=== PATIENT | female | born 1990 | race Caucasian/White ===

== ENCOUNTER 2020-01-02 19:10 | Inpatient (IN) | payer OTHER, SELFPAY ==
[2020-01-02 19:34] VITALS: BP 127/83; PULSE 108
[2020-01-02 19:35] VITALS: TEMP 37.1
[2020-01-02] MEDS: 0.9% Normal Saline Single 100 ML IV.SOLN. IY (20:00)
--- NOTE | 2020-01-02 20:05 | HP.PCM_ITS ---
History Date of Admission: 01/02/20 Final LEONARDO: 12/27/19 Gestational age: 40 Weeks and 6 Days History of this : This is a 29 year-old, @ 40.6 weeks- IOL for post EDC. Smoking Status: Never smoker Alcohol: None Number of Fetus(es): 1 History Past Pregnancies: Past Pregnancies Delivery Date Name GA/ Weeks Outcome Route Wt Infant Sex Labor Length Anesthesia Delivery Location Provider FOB Expected Infant Delivery Method: Spontaneous Vaginal Physical Exam Vitals: Vital Signs Temp Pulse BP 98.8 F 108 H 127/83 H 01/02/20 19:35 01/02/20 19:34 01/02/20 19:34 General: Alert, Oriented x3 Abdomen: Soft, Non Tender, - - Gravid Neurological: Cranial nerves II-XII grossly intact [employer]: Normal external genitalia Estimated gestational size: Appropriate for gestational size Presentation: Cephalic Cervix Dilation (cm): 1 Station: -2 Effacement (%): 50 Assessment/Plan This is a 29 year-old, @ 40.6 wks here for IOL 1) admit to L&D 2) monitor FHR/TOCO 3) CYTOTEC/FLANAGAN placed 4) anticipate 5) COVID 19 testing- asymptomatic 6) Epidural if requested for pain mgmt
[2020-01-02 20:08] VITALS: BMI 31.8
[2020-01-02] MEDS: Lactated Ringers 1,000 ML 50 ML IV (20:10)
[2020-01-02 20:28] LABS: Absolute Lymphocyte Count 1.97 X10^3/uL (0.83-4.51); Absolute Neutrophil Count 12.3 X10^3/uL (2.0-7.7); Basophil# 0.03 X10^3/uL; Basophil% 0.2 % (0-1); Eosinophil# 0.08 X10^3/uL; Eosinophils% 0.5 % (0-5); Hematocrit 36.3 % (37-47); Hemoglobin 12.6 g/dL (12.0-15.0); Lymphocyte # 1.97 X10^3/ul (4.0); Lymphocyte % 12.6 % (19-41); Mean Corp Hgb Conc 34.7 g/dL (32-36); Mean Corpuscular Hgb 32.9 pg (27.0-32.0); Mean Corpuscular Volume 94.8 fL (81-99); Mean Platelet Vol. 10.3 fl (6.2-12.0); Monocyte# 1.02 X10^3/uL; Monocyte% 6.5 % (0-10); NRBC Flagged by Analyzer 0 % (0-5); Neutrophil % 78.6 % (47-70); Platelet Count 227 K/mm3 (150-450); RBC Distribution Width CV 13.3 % (11.6-14.6); RBC Distribution Width SD 45.7 fl (35.1-43.9); Red Blood Count 3.83 M/mm3 (4.2-5.4); White Blood Count 15.7 K/mm3 (4.4-11.0)
[2020-01-02 20:29] VITALS: TEMP 37.1; O2SAT 96
[2020-01-02] MEDS: miSOPROStol 25 MCG TABLET PO (20:40)
[2020-01-02 20:42] VITALS: PULSE 101; O2SAT 96
[2020-01-02] MEDS: Acetaminophen 325 MG Tablet PO (21:54)
[2020-01-02 22:44] VITALS: BP 120/68; PULSE 88; TEMP 36.4; O2SAT 98; O2SAT 99
[2020-01-03] VITALS (67 sets, daily range): BP systolic 101–142; BP diastolic 53–86; PULSE 83–174; TEMP 35.1–37.9; O2SAT 81–100
[2020-01-03] MEDS: Oxytocin 30 units/NS 500 ml 30 UNITS/500 ML IV.SOLN IV (00:54)
[2020-01-03] MEDS: 0.9% Saline Lock 10 ML Syringe IV ×2 (00:54→12:42)
[2020-01-03] MEDS: Lactated Ringers 1,000 ML 50 ML IV (00:55)
[2020-01-03] MEDS: Lactated Ringers 500 ML 999 ML IV ×3 (01:06→15:56)
[2020-01-03] MEDS: Mag Hydrox/Al Hydrox/Simeth 30 ML UDC PO ×2 (02:10→20:42)
[2020-01-03] MEDS: Acetaminophen 325 MG Tablet PO (05:53)
--- NOTE | 2020-01-03 08:22 | PCM.PN.BLA ---
Progress Note Seen at bedside. Reports contractions are getting more intense. Vaginal exam performed /-1, AROM performed scant clear fluid. STROKE Vital Signs/Narrative: Vital Signs Temp Pulse BP Pulse Ox 01/03/20 07:19 98.2 F 01/03/20 07:17 100 124/75 H 96 01/03/20 07:16 98.2 F 01/03/20 05:59 97.2 F L 93 112/60 01/03/20 04:55 97.3 F L 97 112/72
[2020-01-03] MEDS: fentaNYL-bupivacaine (epidural) 100 ML BAG EPIDURAL ×3 (09:11→18:52)
[2020-01-03] MEDS: Lactated Ringers 1,000 ML 200 ML IV ×2 (12:43→18:55)
[2020-01-03] MEDS: Oxytocin 30 units/NS 500 ml 30 UNITS/500 ML IV.SOLN 334 UNITS IV (21:31)
[2020-01-03] MEDS: Methylergonovine 0.2 MG/ML Ampul IM (21:34)
--- NOTE | 2020-01-03 21:49 | PCM.OPRPT ---
Vaginal Delivery Maternal Presentation: Medically Indicated Induction Method of Induction: Pitocin, Amniotomy, Cytotec Medical Reason for Induction: - - 41 weeks Amniotic Membrane Rupture Type: Artificial Amniotic Fluid Description: Clear Final LEONARDO: 12/27/19 Final LEONARDO Source: US <20 weeks Gestational age: 41 Weeks and 0 Days Date of Procedure: 01/03/20 Pre-Operative Diagnosis: maternal exhaustion, persistent ROP position Post-Operative Diagnosis: same Surgery/ Procedure Performed: Vacuum Assisted Vaginal Delivery Type of Anesthesia: Epidural Description of Procedure: The patient was complete in labor down for an hour as she was not feeling any urge to push. She then pushed for 3 hours and had significant caput. Position was ROP. She was pushing adequately. There was adequate, pelvis was clinically adequate, and estimated weight was less than 4000 g clinically. Virgen catheter was in place. With pushing efforts, I attempted to manually rotate the baby but was unable to do so. At this point patient was getting fatigued and had been pushing for at least 45 minutes without any significant progress. I offered her a trial of vacuum assistance. Risk benefits and alternatives were reviewed and she desired to proceed. Vacuum was placed on the flexion point and pressure was created to 550 mmHg. I pulled with 4 pulls to and the vacuum was removed. There were no pop offs. The patient then delivered the remainder the head with 1 push. The remainder the infant was delivered in less than 15 seconds with gentle traction and maternal pushing efforts only. The infant was placed on the maternal abdomen and cord clamping was delayed. The cord was then clamped and cut. Spontaneous delivery of the placenta intact with a three-vessel cord. The uterus was mildly atonic without hemorrhage. Fundal massage was given and the dose and infusion rate was increased. The patient was given Methergine IM x1. Uterus was then firm and bleeding became average. Second-degree perineal laceration was closed with 3-0 Vicryl Rapide suture in a running standard fashion. Sponge and needle counts were correct. A vaginal sweep was completed by me. Patient and fetus tolerated the procedure well. Presentation: ROP Placental Delivery Description: Spontaneous Placenta Disposition: [facility] Cord Vessel Description: 3 Vessels Cord Gases drawn per routine: ABG, VBG Cord Entanglement: None Drain: Virgen to straight drain Estimated Blood Loss: 500 Infant A gender: Female - Charlotte (1 minute): 9 (5 minute): 9 Episiotomy Description: None Laceration: 2nd degree - perineal Medications given after delivery: IV Pitocin Complications: None
[2020-01-04] MEDS: Naproxen 250 MG Tablet 500 MG PO ×3 (01:54→18:45)
[2020-01-04 03:19] VITALS: BP 121/57; PULSE 109; RESP 18; TEMP 37.2; O2SAT 99
--- NOTE | 2020-01-04 04:41 | NURSING ---
Report given to Skylar GIANG, taking over pt and care at this time.
[2020-01-04 06:24] LABS: Hematocrit 33.1 % (37-47); Hemoglobin 11.5 g/dL (12.0-15.0); Mean Corp Hgb Conc 34.7 g/dL (32-36); Mean Corpuscular Hgb 32.5 pg (27.0-32.0); Mean Corpuscular Volume 93.5 fL (81-99); Mean Platelet Vol. 10.3 fl (6.2-12.0); Platelet Count 201 K/mm3 (150-450); RBC Distribution Width CV 13.2 % (11.6-14.6); RBC Distribution Width SD 45.3 fl (35.1-43.9); Red Blood Count 3.54 M/mm3 (4.2-5.4)
[2020-01-04] MEDS: Acetaminophen 500 MG Tablet 1000 MG PO ×2 (07:49→16:06)
[2020-01-04 08:14] VITALS: BP 104/62; PULSE 91; RESP 16; TEMP 36.6; O2SAT 97
--- NOTE | 2020-01-04 08:48 | PCM.PN.OB ---
Subjective: pain well controlled, average lochia - Physical Exam Vitals/I&O's: Vital Signs Temp Pulse Resp BP Pulse Ox 97.9 F 91 16 104/62 97 01/04/20 08:14 01/04/20 08:14 01/04/20 08:14 01/04/20 08:14 01/04/20 08:14 Oxygen Delivery Method Room Air Weight: 81.5 kg Body Mass Index (BMI) 31.8 Intake and Output for Last 24 Hours 01/02/20 01/03/20 01/04/20 23:59 23:59 23:59 Intake Total 0.83 / 0.83 6470.47 / 6470.47 500 / 500 Output Total 2700 / 2700 700 / 700 Balance 0.83 / 0.83 3770.47 / 3770.47 -200 / -200 General: Alert, Cooperative, No apparent distress Abdomen: Soft, Non Tender, Non-Distended, Gravid Extremities: Edema - 1+ Microbiology Past 72 Hours 01/02/20 20:03 Mucosa - Nasopharyngeal Coronavirus COVID-19 PCR - Final Laboratory Results 01/04/20 06:15: WBC 24.0 H, RBC 3.54 L, Hgb 11.5 L, Hct 33.1 L, MCV 93.5, MCH 32.5 H, MCHC 34.7, RDW Std Deviation 45.3 H, RDW Coeff of Vivek 13.2, Plt Count 201, MPV 10.3 Current Medications Acetaminophen (Tylenol) 1,000 mg PO Q8H PRN PRN PRN Reason: Pain Score 1-3/10 Last Admin: 01/04/20 07:49 Dose: 1,000 mg Documented by: Bisacodyl (Dulcolax) 10 mg RECTAL UD PRN PRN Reason: If no BM Dibucaine (Dibucaine) 1 applic TOPICAL TID PRN PRN; Protocol PRN Reason: Discomfort Hydrocortisone (Hytone) 1 applic TOPICAL TID PRN PRN; Protocol PRN Reason: Discomfort Methylergonovine Maleate (Methergine) 0.2 mg IM X1 PRN PRN Reason: Excess bleeding/uterine atony Naproxen (Naprosyn) 500 mg PO Q8H PRN PRN PRN Reason: Pain Score 1-3/10 Last Admin: 01/04/20 01:54 Dose: 500 mg Documented by: Ondansetron HCl (Zofran) 4 mg IV Q4H PRN PRN PRN Reason: Nausea Prochlorperazine Edisylate (Compazine Iv) 10 mg IV Q6H PRN PRN PRN Reason: NAUSEA/VOMITING Senna/Docusate Sodium (Senokot-S, Deana-Colace) 1 - 2 tablet PO DAILY PRN PRN PRN Reason: Constipation Simethicone (Mylicon) 80 mg PO PCHS PRN PRN Reason: Indigestion/Stomach pain Sodium Chloride () 5 - 15 ml IV UD PRN PRN Reason: SALINE FLUSH Medical Necessity - Tobacco Use Smoking Status: Former smoker Assessment/Plan PPD#1 s/p Vacuum assisted vaginal delivery routine care infant and doing well
[2020-01-04] MEDS: Senna/Docusate Sodium 1 Tablet PO (09:21)
[2020-01-04 12:30] VITALS: BP 113/65; PULSE 93; RESP 16; TEMP 36.6; O2SAT 98
[2020-01-04 17:00] VITALS: BP 108/54; PULSE 95; RESP 16; TEMP 36.5; O2SAT 97
[2020-01-04 20:25] VITALS: BP 115/70; PULSE 84; RESP 16; TEMP 35.9
[2020-01-05] MEDS: Acetaminophen 500 MG Tablet 1000 MG PO (00:46)
[2020-01-05 02:15] VITALS: BP 107/71; PULSE 91; RESP 16; TEMP 36.5
--- NOTE | 2020-01-05 08:18 | DCINST_ITS ---
Discharge Diet: No Restrictions Discharge Activity: Return to Normal Activity, May not drive while taking narcotic pain medications., May Shower May resume sexual activity in: 4-6 weeks Additional Activity Instructions:: Nothing in the vagina for 4-6 weeks. You may return to work/school in 6 weeks. Call your doctor if your incision/area has: Continuous Slow Oozing, Sudden Increased Bleeding, Increased Pain/ Swelling, Increased Redness, Foul Smelling Discharge Additional Instructions: If you experience any of the following, contact your healthcare provider. * Bleeding that soaks a pad every hour for 2 hours * Fever 100.4 or higher * Unrelieved incision or abdominal pain * Swelling, redness, discharge or bleeding from your incision or episiotomy site * Your incision begins to separate * Problems urinating (including inability to urinate or burning while urinating). * Visual changes * Severe headache * Flu-like symptoms * Pain or redness in one of both of your breasts * Pain, warmth, tenderness or swelling in your legs, especially the calf area * Frequent nausea and vomiting * Symptoms of depression or anxiety If you experience any of the following, call 911 or go to the nearest Emergency Room. * Chest pain * Problems breathing * Seizure activity * Partial or complete paralysis of a body part, slurred speech, weakness or drooping of the face, or a sudden inability to walk or hold your balance Allergies/Adverse Reactions: Allergies No Known Allergies Allergy (Verified 01/02/20 20:09) Medications to take at Discharge Docusate Sodium [Colace] 100 mg PO DAILY 01/02/20 Ferrous Sulfate [Slow Release Iron] 140 mg PO DAILY 01/02/20 Vits [Prenatabs FA ] 1 tab PO DAILY 01/02/20 Ibuprofen [Motrin] 600 mg PO Q6H PRN #30 tab 01/05/20 The following prescriptions were given: Ibuprofen [Motrin] 600 mg PO Q6H PRN #30 tab PRN Reason: Pain Transmission Status: Pending to [employer] #[id number] Please Follow Up With: Renay Simmons MD - [phone] When: Call to make an appointment with your provider's office in 1-2 and 6 weeks or as needed Test Results: Test results from this visit will be discussed in further detail at your follow- up appointment, if applicable.
--- NOTE | 2020-01-05 08:18 | PCM.DCVAG ---
Discharge Diet: No Restrictions Discharge Activity: Return to Normal Activity, May not drive while taking narcotic pain medications., May Shower May resume sexual activity in: 4-6 weeks Additional Activity Instructions:: Nothing in the vagina for 4-6 weeks. You may return to work/school in 6 weeks. Call your doctor if your incision/area has: Continuous Slow Oozing, Sudden Increased Bleeding, Increased Pain/ Swelling, Increased Redness, Foul Smelling Discharge Additional Instructions: If you experience any of the following, contact your healthcare provider. Bleeding that soaks a pad every hour for 2 hours Fever 100.4 or higher Unrelieved incision or abdominal pain Swelling, redness, discharge or bleeding from your incision or episiotomy site Your incision begins to separate Problems urinating (including inability to urinate or burning while urinating). Visual changes Severe headache Flu-like symptoms Pain or redness in one of both of your breasts Pain, warmth, tenderness or swelling in your legs, especially the calf area Frequent nausea and vomiting Symptoms of depression or anxiety If you experience any of the following, call 911 or go to the nearest Emergency Room. Chest pain Problems breathing Seizure activity Partial or complete paralysis of a body part, slurred speech, weakness or drooping of the face, or a sudden inability to walk or hold your balance Allergies/Adverse Reactions: Allergies No Known Allergies Allergy (Verified 01/02/20 20:09) Medications to take at Discharge Docusate Sodium [Colace] 100 mg PO DAILY 01/02/20 Ferrous Sulfate [Slow Release Iron] 140 mg PO DAILY 01/02/20 Vits [Prenatabs FA ] 1 tab PO DAILY 01/02/20 Ibuprofen [Motrin] 600 mg PO Q6H PRN #30 tab 01/05/20 The following prescriptions were given: Ibuprofen [Motrin] 600 mg PO Q6H PRN #30 tab PRN Reason: Pain Transmission Status: Pending to [employer] [facility] Please Follow Up With: Renay Simmons MD - [phone] When: Call to make an appointment with your provider's office in 1-2 and 6 weeks or as needed Test Results: Test results from this visit will be discussed in further detail at your follow-up appointment, if applicable.
--- NOTE | 2020-01-05 08:19 | PCM.PN.OB ---
Subjective: pain well controlled, average lochia - Physical Exam Vitals/I&O's: Vital Signs Temp Pulse Resp BP Pulse Ox 97.7 F L 91 16 107/71 97 01/05/20 02:15 01/05/20 02:15 01/05/20 02:15 01/05/20 02:15 01/04/20 17:00 Oxygen Delivery Method Room Air Weight: 81.5 kg Body Mass Index (BMI) 31.8 Intake and Output for Last 24 Hours 01/03/20 01/04/20 01/05/20 23:59 23:59 23:59 Intake Total 6470.47 / 6470.47 500 / 500 800 / 800 Output Total 2700 / 2700 700 / 700 Balance 3770.47 / 3770.47 -200 / -200 800 / 800 General: Alert, Cooperative, No apparent distress Microbiology Past 72 Hours 01/02/20 20:03 Mucosa - Nasopharyngeal Coronavirus COVID-19 PCR - Final Current Medications Acetaminophen (Tylenol) 1,000 mg PO Q8H PRN PRN PRN Reason: Pain Score 1-3/10 Last Admin: 01/05/20 00:46 Dose: 1,000 mg Documented by: Bisacodyl (Dulcolax) 10 mg RECTAL UD PRN PRN Reason: If no BM Dibucaine (Dibucaine) 1 applic TOPICAL TID PRN PRN; Protocol PRN Reason: Discomfort Hydrocortisone (Hytone) 1 applic TOPICAL TID PRN PRN; Protocol PRN Reason: Discomfort Methylergonovine Maleate (Methergine) 0.2 mg IM X1 PRN PRN Reason: Excess bleeding/uterine atony Naproxen (Naprosyn) 500 mg PO Q8H PRN PRN PRN Reason: Pain Score 1-3/10 Last Admin: 01/04/20 18:45 Dose: 500 mg Documented by: Ondansetron HCl (Zofran) 4 mg IV Q4H PRN PRN PRN Reason: Nausea Prochlorperazine Edisylate (Compazine Iv) 10 mg IV Q6H PRN PRN PRN Reason: NAUSEA/VOMITING Senna/Docusate Sodium (Senokot-S, Deana-Colace) 1 - 2 tablet PO DAILY PRN PRN PRN Reason: Constipation Last Admin: 01/04/20 09:21 Dose: 1 tablet Documented by: Simethicone (Mylicon) 80 mg PO PCHS PRN PRN Reason: Indigestion/Stomach pain Sodium Chloride () 5 - 15 ml IV UD PRN PRN Reason: SALINE FLUSH Medical Necessity - Tobacco Use Smoking Status: Former smoker Assessment/Plan PPD#2 doing well and doing well ready for d/c today
[2020-01-05 08:28] VITALS: BP 107/65; PULSE 91; RESP 16; TEMP 36.7; O2SAT 98
[2020-01-05] MEDS: Naproxen 250 MG Tablet 500 MG PO (10:57)
[2020-01-05 13:36] VITALS: BP 117/75; PULSE 96; RESP 16; TEMP 37.2; O2SAT 100
== END 2020-01-05 15:50 | disposition home or self-care (01) | DRG 807 ==
PROVIDERS: Obstetrics & Gynecology; Admitting Provider Obstetrics & Gynecology; Referring Provider Obstetrics & Gynecology; Visit Provider Obstetrics & Gynecology
DX: O75.81 Maternal exhaustion complicating labor and delivery (principal); Z37.0 Single live birth; O48.0 Post-term pregnancy; Z3A.41 41 weeks gestation of pregnancy; O32.8XX0 Maternal care for other malpresentation of fetus, not applicable or unspecified; O75.89 Other specified complications of labor and delivery; O70.1 Second degree perineal laceration during delivery; Z87.891 Personal history of nicotine dependence
CPT/HCPCS: 59025; 59050; 85025; 85027; 86850; 86900; 86901; 87635; 99218; G2023; J7120; A4216; G0378; U0004

== ENCOUNTER → 2020-01-09 14:00 | Outpatient (CLI) | payer OTHER, SELFPAY ==
[2020-01-02 20:08] VITALS: BMI 31.8
== END ==
PROVIDERS: Referring Provider Obstetrics & Gynecology; Visit Provider Obstetrics & Gynecology
DX: Z39.1 Encounter for care and examination of lactating mother (principal)
CPT/HCPCS: 96158; 96159

== ENCOUNTER 2020-01-25 10:15 | Outpatient (CLI) | payer OTHER, SELFPAY | END 2020-01-25 11:20 | disposition home or self-care (01) | LOC: WPOUT 10:23 → WP 10:24 | PROVIDERS: Referring Provider Obstetrics & Gynecology; Visit Provider Obstetrics & Gynecology | DX: P92.5 Neonatal difficulty in feeding at breast (principal) | CPT/HCPCS: 96158; 96159 ==

== ENCOUNTER 2021-11-09 18:07 | Inpatient (IN) | payer OTHER, SELFPAY ==
[2021-11-09] VITALS (61 sets, daily range): BP systolic 92–138; BP diastolic 52–86; PULSE 90–137; TEMP 36.3–37.8; O2SAT 89–100; BMI 31.6
[2021-11-09] MEDS: Lactated Ringers 1,000 ML 50 ML IV (18:05)
[2021-11-09] MEDS: Lactated Ringers 500 ML 999 ML IV (18:15)
[2021-11-09 18:22] LABS: Absolute Lymphocyte Count 1.17 X10^3/uL (0.83-4.51); Basophil# 0.04 X10^3/uL; Basophil% 0.2 % (0-1); Eosinophil# 0.02 X10^3/uL; Eosinophils% 0.1 % (0-5); Hematocrit 36.7 % (37-47); Hemoglobin 12.9 g/dL (12.0-15.0); Lymphocyte # 1.17 X10^3/ul (0.83-4.51); Lymphocyte % 6.7 % (19-41); Mean Corp Hgb Conc 35.1 g/dL (32-36); Mean Corpuscular Hgb 31.9 pg (27.0-32.0); Mean Corpuscular Volume 90.8 fL (81-99); Mean Platelet Vol. 10.7 fl (6.2-12.0); Monocyte# 1.01 X10^3/uL; Monocyte% 5.8 % (0-10); NRBC Flagged by Analyzer 0 % (0-5); Neutrophil # 14.99 X10^3/uL (2.7-7.7); Neutrophil % 86.2 % (47-70); Platelet Count 193 K/mm3 (150-450); RBC Distribution Width CV 13.9 % (11.6-14.6); RBC Distribution Width SD 46.2 fl (35.1-43.9); Red Blood Count 4.04 M/mm3 (4.2-5.4); White Blood Count 17.4 K/mm3 (4.4-11.0)
--- NOTE | 2021-11-09 18:44 | HP.PCM.OB_ITS ---
HPI - General General Date of Admission: 11/09/21 HPI Narrative OTTO MACHADO, is a 31 F who presents with ctxs. Maternal Data Information Final LEONARDO: 11/08/21 Gestational age: 40&1 PFSH PFSH Medical History (Updated 11/09/21 @ 18:[address] Kaitlyn Pressley MD) Genital herpes affecting Post-dates Psoriasis Home Medications acyclovir 400 mg PO TID 11/09/21 [History Last Taken 11/09/21 06:00] [id number] [Prenatabs FA] 1 tab PO DAILY 11/09/21 [History Last Taken 11/09/21 06:00] Allergy/AdvReac Type Severity Reaction Status Date / Time No Known Allergies Allergy Verified 01/02/20 20:09 Surgical History (Updated 11/09/21 @ 18:[address] Kaitlyn Pressley MD) [place] teeth removed Social History Smoking Status: Former smoker History Elective abortions Hx Para 1 Spontaneous abortions Hx # Term Pregnancies Ectopic pregnancies Hx # Pregnancies Multiple births # of living children NST FHR Rate Baby A Baseline: 145 Variability:: Moderate Accelerations:: 15 x 15 Decelerations:: None Uterine Activity:: Q 3-4 minutes Vital Signs Vital Signs Vital Signs: 11/09/21 07:17 11/09/21 07:18 11/09/21 07:23 Temperature Temperature Source Pulse Rate 127 H 121 H 113 H Blood Pressure 118/69 BP Systolic 118 BP Diastolic 69 Pulse Ox 98 97 11/09/21 07:26 11/09/21 08:16 11/09/21 08:21 Temperature 97.3 F L Temperature Source Temporal Pulse Rate 118 H 110 H 113 H Blood Pressure 118/69 BP Systolic 118 BP Diastolic 69 Pulse Ox 98 95 95 11/09/21 08:26 11/09/21 08:31 11/09/21 08:36 Temperature Temperature Source Pulse Rate 106 H 108 H 98 Blood Pressure BP Systolic BP Diastolic Pulse Ox 95 95 97 11/09/21 08:41 11/09/21 08:46 11/09/21 08:51 Temperature Temperature Source Pulse Rate 102 H 112 H 106 H Blood Pressure BP Systolic BP Diastolic Pulse Ox 97 96 97 11/09/21 08:56 11/09/21 17:48 Temperature Temperature Source Pulse Rate 105 H 116 H Blood Pressure 120/84 H BP Systolic 120 BP Diastolic 84 Pulse Ox 97 Weight Weight: 179 lb Body Mass Index (BMI) 31.6 Physical Exam Const alert, oriented x3 and no apparent distress Chest inspection of chest normal Resp normal respiratory effort GI soft to palpation, non-tender and non-distended Inspection: gravid external exam normal Narrative: /-2 Labs Labs Labs: Blood Type A POSITIVE Antibody Screen NEGATIVE Hct 36.7 % (37-47) L Hgb 12.9 g/dL (12.0-15.0) Rhogam given: No See [facility] H&P Assessment & Plan (1) Post-dates : QUALIFIERS: Post-term type: 40-42 weeks gestation Qualified Code(s): O48.0 - Post-term COMMENT: 40&1 PLAN: Admit to L&D Expectant management GBS negative H/o HSV - no lesions, on acyclovir Pain - epidural as desired ROutine care
[2021-11-09] MEDS: fentaNYL-bupivacaine (epidural) 100 ML BAG EPIDURAL (19:45)
--- NOTE | 2021-11-09 22:58 | EX.PCM.OBRPT ---
Maternal Data Information Final LEONARDO: 11/08/21 Gestational age: 40&1 Vaginal Delivery Maternal Presentation Maternal Presentation: Active Labor Operative Information Date of Procedure: 11/09/21 Pre-Operative Diagnosis: Labor Post-Operative Diagnosis: Labor Surgery / Procedure Performed: Spontaneous Vaginal Delivery Type of Anesthesia: Epidural Estimated Blood Loss: 250ml Findings Description of Procedure: Patient prepped & draped when C/C/+2. She pushed well to deliver the head. head gently guided to allow delivery of anterior and posterior shoulders. No excess traction placed on head. Body delivered through the loose nuchal cord. 3VC clamped & cut in delayed fashion. Placenta delivered with gentle traction and good uterine tone obtained. Presentation: ERIS Amniotic Membrane Rupture Type: Artificial Amniotic Fluid Description: Clear Placental Delivery Description: Expressed Placenta Disposition: [facility] Specimen(s) Removed: Placenta Cord Vessel Description: 3 Vessels Cord Entanglement: Around neck x 1, loose Nuchal Cord Compression: Without compression A Gender: Female (Casie) (1 minute): 8 (5 minute): 9 Delayed Cord Clamping: Yes Post Vaginal Delivery Medications Given After Delivery: IV Pitocin Episiotomy Description: None Laceration: 1st degree (vaginal - repaired with 3-0 vicryl) Complication Complications: None
[2021-11-09] MEDS: Oxytocin 30 units/NS 500 ml 30 UNITS/500 ML IV.SOLN 334 UNITS IV (23:11)
[2021-11-10] VITALS (15 sets, daily range): BP systolic 91–121; BP diastolic 51–75; PULSE 86–122; RESP 15–16; TEMP 36.3–36.8; O2SAT 96–98
[2021-11-10] MEDS: Ibuprofen 600 MG Tablet PO ×2 (08:09→21:01)
[2021-11-10] MEDS: Senna/Docusate Sodium 1 Tablet PO ×2 (08:09→21:01)
--- NOTE | 2021-11-10 08:09 | PN.OBGYN_ITS ---
Subjective Subjective She is doing well this morning. She has no complaints. Pain is well controlled. Lochia is normal. Objective Data Objective Data Vital Signs: Vital Signs Temp Pulse Resp BP Pulse Ox 98.2 F 102 H 16 112/69 97 11/10/21 07:45 11/10/21 07:46 11/10/21 07:45 11/10/21 07:46 11/10/21 07:45 Oxygen Delivery Method Room Air Weight: 179 lb Body Mass Index (BMI) 31.6 Intake & Output: Intake and Output for Last 24 Hours 11/08/21 11/09/21 11/10/21 23:59 23:59 23:59 Intake Total 2106.78 / 2106.78 286.68 / 286.68 Output Total 1300 / 1300 Balance 806.78 / 806.78 286.68 / 286.68 Lab / Micro Data Result Diagrams: 11/09/21 18:05 Labs: Laboratory Results - last 24 hr 11/09/21 18:05: WBC 17.4 H, RBC 4.04 L, Hgb 12.9, Hct 36.7 L, MCV 90.8, MCH 31.9, MCHC 35.1, RDW Std Deviation 46.2 H, RDW Coeff of Vivek 13.9, Plt Count 193, MPV 10.7, Immature Gran % (Auto) 1.000 H, Neut % (Auto) 86.2 H, Lymph % (Auto) 6.7 L, [place] % (Auto) 5.8, Eos % (Auto) 0.1, Baso % (Auto) 0.2, Absolute Neuts (auto) 15.0 H, Absolute Lymphs (auto) 1.17, Nucleated RBC % 0 11/09/21 18:05: Blood Type Cancelled, Antibody Screen Cancelled 11/09/21 18:55: Blood Type A POSITIVE, Antibody Screen NEGATIVE Micro: Microbiology 11/09/21 18:50 Nasal Secretion SARS-CoV-2 Antigen (Rapid) - Final Physical Exam Const no apparent distress General Appearance: comfortable Assessment & Plan (1) Vaginal delivery: PLAN: PPD1 doing well Routine care Anticipate discharge tomorrow
[2021-11-10] MEDS: Acyclovir 200 MG Capsule 400 MG PO ×2 (13:13→21:01)
[2021-11-10] MEDS: Acetaminophen 500 MG Tablet 1000 MG PO (23:49)
[2021-11-11 02:19] VITALS: BP 92/50; PULSE 74; RESP 18; TEMP 36.8
[2021-11-11] MEDS: Acyclovir 200 MG Capsule 400 MG PO (06:32)
--- NOTE | 2021-11-11 07:24 | PCM.PROGNOTE ---
Subjective Subjective patient seen at bedside, doing well. Patient reports good pain control. lochia mild. breast feeding Objective Data Objective Data Vital Signs: Vital Signs Temp Pulse Resp BP Pulse Ox 98.3 F 74 18 92/50 L 98 11/11/21 02:19 11/11/21 02:19 11/11/21 02:19 11/11/21 02:19 11/10/21 20:56 Oxygen Delivery Method Room Air Weight: 81.193 kg Body Mass Index (BMI) 31.6 Intake & Output: Intake and Output for Last 24 Hours 11/09/21 11/10/21 11/11/21 23:59 23:59 23:59 Intake Total 2106.78 / 2106.78 286.68 / 286.68 Output Total 1300 / 1300 Balance 806.78 / 806.78 286.68 / 286.68 Lab / Micro Data Result Diagrams: 11/09/21 18:05 Micro: Microbiology 11/09/21 18:50 Nasal Secretion SARS-CoV-2 Antigen (Rapid) - Final Physical Exam Const alert and oriented x3 General Appearance: cooperative HEENT normocephalic Neck General: normal visual inspection GI soft to palpation and non-distended GI Narrative: Fundus firm Extremity normal to inspection and no calf tenderness Skin no rashes or lesions noted Neuro oriented x3 and CN's II-XII intact bilaterally Psych mental status grossly normal Assessment & Plan Assessment/Plan (1) Vaginal delivery: PLAN: PPD# 2 , Doing well Routine care pain mgmt ambulation dc home
--- NOTE | 2021-11-11 07:25 | NURSING ---
report given to Marshall Mcghee RN who is assuming care of pt at this time
--- NOTE | 2021-11-11 07:25 | PCM.DC ---
Discharge Instructions Diet Discharge Diet: No restrictions Activity May resume sexual activity in: 6-8 weeks Dressing / Incision Call your doctor if you observe: Fever of 101 or Higher, Inability to urinate, Using more than 1 pad per hour and Uncontrolled pain Follow Up Care Please Follow Up With: Melida Kent MD When: 1-2 weeks post and again at 6 weeks post . [phone] Test Results: Test results from this visit will be discussed in further detail at your follow-up appointment, if applicable. Discharge Plan Admission Admit Date/Time: 11/09/21 18:07 Attending Provider: Kaitlyn Pressley Primary Care Provider: Care Physician,No Primary Instructions Patient Instructions: Kick Counts, ED False Labor, OB Triage: Return to Hospital or Notify Physician if you Experience: Discharge Orders/Prescriptions Prescriptions: New acetaminophen 500 mg Tablet 1,000 mg PO Q6H PRN PRN (Reason: Pain 1-10 Or Fever) Qty: 0 RF: 0 ibuprofen 600 mg Tablet 600 mg PO Q6H PRN PRN (Reason: Pain Score 1-3) Qty: 0 RF: 0 Continued Prenatabs FA 29-1 mg Tablet 1 tab PO DAILY RF: 0 Discontinued acyclovir 400 mg Tablet 400 mg PO TID RF: 0 Referrals / Follow Up: Care Physician,No Primary [Primary Care Provider] - Disposition Disposition (needs filled in before D/C Order can be placed): Home, Self Care
[2021-11-11 07:44] VITALS: BP 118/76; PULSE 96
[2021-11-11 07:49] VITALS: BP 118/76; PULSE 96; RESP 18; TEMP 36.7; O2SAT 98
== END 2021-11-11 10:25 | disposition home or self-care (01) | DRG 807 ==
LOC: WP 23:19 → WPOUT 11-10 14:24
PROVIDERS: Admitting Provider Advanced Practice Midwife; Referring Provider Advanced Practice Midwife; Visit Provider Obstetrics & Gynecology
DX: O48.0 Post-term pregnancy (principal); Z37.0 Single live birth; L40.9 Psoriasis, unspecified; O69.81X0 Labor and delivery complicated by cord around neck, without compression, not applicable or unspecified; Z87.891 Personal history of nicotine dependence; O99.72 Diseases of the skin and subcutaneous tissue complicating childbirth; Z3A.40 40 weeks gestation of pregnancy; Z86.19 Personal history of other infectious and parasitic diseases; O70.0 First degree perineal laceration during delivery
CPT/HCPCS: 59025; 59050; 85025; 86850; 86900; 86901; 87426; 99218; J7120; G0378